=== PATIENT | male | born 1975 | race Caucasian/White ===

== ENCOUNTER 2016-07-29 05:10 | Emergency (ER) | payer OTHER, SELFPAY ==
[~2016-07-29] VITALS: Ht 182.9 cm; Wt 113.4 kg
[2016-07-29] MEDS ORDERED: OMEP40CA2 PO (05:21)
[2016-07-29 06:15] VITALS: BP 148/72
--- NOTE | 2016-07-29 09:23 | REP ---
LEFT KNEE, TWO VIEWS: There is no evidence of an acute fracture, dislocation or intrinsic bone disease. IMPRESSION: No fracture or dislocation. Signed by Germain Maharaj MD 07/29/2016 12:57 P
== END 2016-07-29 06:16 | disposition home or self-care (01) ==
LOC: M ED 05:52
DX: S83.92XA Sprain of unspecified site of left knee, initial encounter (principal); M25.462 Effusion, left knee; W10.8XXA Fall (on) (from) other stairs and steps, initial encounter; Y92.009 Unspecified place in unspecified non-institutional (private) residence as the place of occurrence of the external cause; Y93.01 Activity, walking, marching and hiking; Y99.8 Other external cause status; K21.9 Gastro-esophageal reflux disease without esophagitis; Z87.891 Personal history of nicotine dependence; Z79.899 Other long term (current) drug therapy